=== PATIENT | female | born 1990 | race African-American/Black ===

== ENCOUNTER 2017-10-03 15:56 | Emergency (ER) | payer MEDICAID ==
--- NOTE | 2017-10-03 16:20 | EDPHY ---
H & P Stated Complaint: Abd Pain, nausea Time Seen by Provider: 10/03/17 16:07 HPI/ROS: CHIEF COMPLAINT: Abdominal pain nausea vomiting diarrhea HISTORY OF PRESENT ILLNESS: 27-year-old female with no history of chronic abdominal pain, no history of abdominal surgeries, complaining of diffuse nonspecific abdominal pain, nausea, vomiting, diarrhea since this morning. No urinary abnormality. No fever or chills. No flank pain. No dyspareunia. No dysuria. No abdominal trauma. REVIEW OF SYSTEMS: A ten point review of systems was performed and is negative with the exception of the items mentioned in the HPI PAST MEDICAL & SURGICAL HISTORY: No history of abdominal surgeries or chronic abdominal pathology. SOCIAL HISTORY: Denies alcohol or drug use. [facility] PHYSICAL EXAM (Prior to examination, patient consented to physical exam, hands were washed and my usual and customary physical exam procedures followed) 1) GENERAL: Well-developed, well-nourished, alert and oriented. Appears uncomfortable laying left lateral, position . 2) HEAD: Normocephalic, atraumatic 3) HEENT: Pupils equal, round, reactive to light bilaterally. Sclera anicteric. Nasopharynx, oropharynx, clear, no lesions. Dry mucous membranes Ears bilaterally with normal tympanic membranes. 4) NECK: Full range of motion, no meningeal signs. 5) LUNGS: Clear auscultation bilaterally, no wheezes, no rhonchi, no retractions. 6) HEART: Regular rate and rhythm, no murmur, no heave, no gallop. 7) ABDOMEN: Guarding abdomen, tender to palpation all quadrants 8) MUSCULOSKELETAL: Moving all extremities, no focal areas of tenderness, no obvious trauma. No peripheral edema or discoloration. 9) BACK: No CVA tenderness, no midline vertebral tenderness, no fluctuance, no step-off, no obvious trauma, no visual or palpable abnormality. 10) SKIN: No rash, no petechiae. 11) Psychiatric: Patient is oriented X 3, there is no agitation. DIFFERENTIAL DIAGNOSIS: My differential diagnosis includes, but is not limited to, acute appendicitis, acute cholecystitis, bowel obstruction, acute pancreatitis, ovarian torsion, ectopic , gastritis and urinary tract infection. The patient understands that this diagnosis is provisional and can never be 100% accurate. This is a partial list of diagnoses considered. These considerations are based on history, physical exam, past history and reassessment. - Personal History LMP (Females 10-55): Unknown Current Tetanus/Diphtheria Vaccine: Unsure Current Tetanus Diphtheria and Acellular Pertussis (TDAP): Unsure - Medical/Surgical History Hx Asthma: No Hx Chronic Respiratory Disease: No Hx Diabetes: No Hx Cardiac Disease: No Hx Renal Disease: No Hx Cirrhosis: No Hx Alcoholism: No Hx HIV/AIDS: No Hx Splenectomy or Spleen Trauma: No Other PMH: PMH: hyperthyriod, seizures - Social History Smoking Status: Current every day smoker Constitutional: Initial Vital Signs Temperature (C) 36.9 C 10/03/17 16:01 Heart Rate 87 10/03/17 16:01 Respiratory Rate 18 10/03/17 16:01 Blood Pressure 110/75 10/03/17 16:01 O2 Sat (%) 99 10/03/17 16:01 O2 Delivery Mode Room Air Allergies/Adverse Reactions: No Known Allergies Allergy (Unverified 10/03/17 16:03) Home Medications: Medication Instructions Recorded NK [No Known Home Meds] 10/03/17 Medical Decision Making - Diagnostics Imaging Results: Imaging Impressions PICC Line Insertion 10/03/17 17:05 Impression: 4-Faroese double-lumen peripherally inserted central catheter is ready to use. - - - - - - - - - - - - - - - - - - - - - - - - - - - - - - - - - - - - - - - - - (Cross-cutting measures: Current medications were listed in the medical record , including all known prescriptions, [id number] medications, herbal medications, and nutritional supplements.) IR call Pelvic/Renal Ultrasound 10/03/17 19:45 Impression: Normal ultrasound pelvis. Findings and recommendations discussed with Angelito Hayward at 10:00 PM hour , 10/03/2017. Final report concurs with initial preliminary interpretation. Abdomen CT 10/03/17 20:01 Impression: Normal abdominal CT. Findings and recommendations discussed with Angelito Hayward at 10:00 PM hour , 10/03/2017. Final report concurs with initial preliminary interpretation. Images reviewed by myself ED Course/Re-evaluation: 5:04 p.m.: Emergency department staff has attempted on numerous instances to obtain IV access unsuccessfully. Consultation with Dr. Anne at this time perform PICC line 8:02 p.m.: Patient has been observed in the ER, PICC line is in, complaining of continued abdominal pain 9:01 p.m.: Re-evaluation, patient is sleeping. Appears comfortable. 10:00 p.m.: Re-evaluation, talking on the phone appears comfortable 10:20 p.m.: Discussed with the patient her imaging results showing normal CT scan abdomen, normal pelvic ultrasound. Doubt acute surgical abdominal pathology, doubt acute appendicitis, doubt ovarian torsion, doubt ectopic , doubt acute cholecystitis, doubt acute pancreatitis. Specific etiology of her pain is not completely clear at this time. She is asymptomatic at this time. I do not think that further diagnostic studies or hospitalization is indicated. Recommended follow up with primary care and with Gastroenterology. She feels comfortable with this plan. All questions and concerns addressed by myself. Usual and customary abdominal precautions and instructions provided.Care of patient under supervision of secondary supervising physician Dr Monzon . - Data Points Laboratory Results: Laboratory Results 10/03/17 19:00 10/03/17 19:00 10/03/17 10/03/17 10/03/17 19:00 19:00 19:00 WBC 6.97 10^3/uL 10^3/uL (3.80-9.50) RBC 4.57 10^6/uL 10^6/uL (4.18-5.33) Hgb 13.5 g/dL g/dL (12.6-16.3) Hct 40.2 % % (38.0-47.0) MCV 88.0 fL fL (81.5-99.8) MCH 29.5 pg pg (27.9-34.1) MCHC 33.6 g/dL g/dL (32.4-36.7) RDW 12.8 % % (11.5-15.2) Plt Count 215 10^3/uL 10^3/uL (150-400) MPV 9.1 fL fL (8.7-11.7) Neut % (Auto) 81.8 % H % (39.3-74.2) Lymph % (Auto) 12.9 % L % (15.0-45.0) [place] % (Auto) 4.4 % L % (4.5-13.0) Eos % (Auto) 0.3 % L % (0.6-7.6) Baso % (Auto) 0.3 % % (0.3-1.7) Nucleat RBC Rel Count 0.0 % % (0.0-0.2) Absolute Neuts (auto) 5.70 10^3/uL 10^3/uL (1.70-6.50) Absolute Lymphs (auto) 0.90 10^3/uL L 10^3/uL (1.00-3.00) Absolute Monos (auto) 0.31 10^3/uL 10^3/uL (0.30-0.80) Absolute Eos (auto) 0.02 10^3/uL L 10^3/uL (0.03-0.40) Absolute Basos (auto) 0.02 10^3/uL 10^3/uL (0.02-0.10) Absolute Nucleated RBC 0.00 10^3/uL 10^3/uL (0-0.01) Immature Gran % 0.3 % % (0.0-1.1) Immature Gran # 0.02 10^3/uL 10^3/uL (0.00-0.10) Sodium 137 mEq/L mEq/L (134-144) Potassium 4.1 mEq/L mEq/L (3.5-5.2) Chloride 104 mEq/L mEq/L (97-110) Carbon Dioxide 19 mEq/l L mEq/l (22-31) Anion Gap 14 mEq/L mEq/L (8-16) BUN 13 mg/dL mg/dL (7-23) Creatinine 0.7 mg/dL mg/dL (0.6-1.0) Estimated GFR > 60 Glucose 82 mg/dL mg/dL (70-100) Calcium 9.6 mg/dL mg/dL (8.5-10.4) Total Bilirubin 1.8 mg/dL H mg/dL (0.1-1.4) Conjugated Bilirubin 0.0 mg/dL mg/dL (0.0-0.5) Unconjugated Bilirubin 1.8 mg/dL H mg/dL (0.0-1.1) AST 21 IU/L IU/L (14-46) ALT 31 IU/L IU/L (9-52) Alkaline Phosphatase 90 IU/L IU/L (38-126) Total Protein 6.7 g/dL g/dL (6.3-8.2) Albumin 4.2 g/dL g/dL (3.5-5.0) Lipase 73 IU/L IU/L (23-300) Beta HCG, Qual NEGATIVE Urine Color Urine Appearance Urine pH Ur Specific [place] Urine Protein Urine Ketones Urine Blood Urine Nitrate Urine Bilirubin Urine Urobilinogen Ur Leukocyte Esterase Urine RBC Urine WBC Ur Epithelial Cells Urine Mucus Urine Glucose 10/03/17 18:15 WBC RBC Hgb Hct MCV MCH MCHC RDW Plt Count MPV Neut % (Auto) Lymph % (Auto) [place] % (Auto) Eos % (Auto) Baso % (Auto) Nucleat RBC Rel Count Absolute Neuts (auto) Absolute Lymphs (auto) Absolute Monos (auto) Absolute Eos (auto) Absolute Basos (auto) Absolute Nucleated RBC Immature Gran % Immature Gran # Sodium Potassium Chloride Carbon Dioxide Anion Gap BUN Creatinine Estimated GFR Glucose Calcium Total Bilirubin Conjugated Bilirubin Unconjugated Bilirubin AST ALT Alkaline Phosphatase Total Protein Albumin Lipase Beta HCG, Qual Urine Color YELLOW Urine Appearance HAZY Urine pH 5.0 (5.0-7.5) Ur Specific [place] 1.027 (1.002-1.030) Urine Protein NEGATIVE (NEGATIVE) Urine Ketones TRACE H (NEGATIVE) Urine Blood NEGATIVE (NEGATIVE) Urine Nitrate NEGATIVE (NEGATIVE) Urine Bilirubin NEGATIVE (NEGATIVE) Urine Urobilinogen NEGATIVE EU EU (0.2-1.0) Ur Leukocyte Esterase NEGATIVE (NEGATIVE) Urine RBC 3-5 /hpf H /hpf (0-3) Urine WBC 1-3 /hpf /hpf (0-3) Ur Epithelial Cells TRACE /lpf /lpf (NONE-1+) Urine Mucus 1+ /lpf /lpf (NONE-1+) Urine Glucose NEGATIVE (NEGATIVE) Medications Given: Discontinued Medications Sodium Chloride (Ns) 1,000 mls @ 0 mls/hr IV ONCE ONE PRN Reason: Wide Open Stop: 10/03/17 16:23 Last Admin: 10/03/17 18:30 Dose: 1,000 mls Ketorolac Tromethamine (Toradol) 30 mg IVP EDNOW ONE Stop: 10/03/17 16:23 Last Admin: 10/03/17 19:15 Dose: Not Given Ketorolac Tromethamine (Toradol) 30 mg IM EDNOW ONE Stop: 10/03/17 17:23 Last Admin: 10/03/17 17:26 Dose: 30 mg Morphine Sulfate (Morphine) 4 mg IVP EDNOW ONE Stop: 10/03/17 19:46 Last Admin: 10/03/17 20:06 Dose: 4 mg Ondansetron HCl (Zofran) 4 mg IVP EDNOW ONE Stop: 10/03/17 16:23 Last Admin: 10/03/17 19:15 Dose: Not Given Departure - Departure Disposition: Home, Routine, Self-Care Clinical Impression: Abdominal pain Qualifiers: Abdominal location: generalized Qualified Code(s): R10.84 - Generalized abdominal pain Condition: Good Instructions: Acute Abdominal Pain (ED) Additional Instructions: Seek immediate medical attention if you develop new or worsening symptoms, if you develop fevers, chills, inability to tolerate oral intake or any other symptoms that concerns you. Referrals: Brad Zarate MD [[facility] [place] Primary Care Provider] - 2-3 days, call for appt. (Dr. Zarate is a economic development manager) [facility] [address] [Clinic] - 1 day without fail
[2017-10-03] MEDS ORDERED: NS 1,000 ML IV ONE (16:22)
[2017-10-03] MEDS ORDERED: ONDANSETRON 4 MG/2 ML VIAL IVP ONE (16:22)
[2017-10-03] MEDS ORDERED: KETOROLAC 30 MG/1 ML SDV IVP ONE (16:22)
[2017-10-03] MEDS ORDERED: ALTEPLASE 2 MG VIAL IVP PRN (17:05)
[2017-10-03] MEDS ORDERED: KETOROLAC 30 MG/1 ML SDV IM ONE (17:22)
[2017-10-03] MEDS ORDERED: ONDANSETRON DISINTEGRATING 4 MG TAB ONE (17:23)
[2017-10-03 18:44] LABS: COLOR YELLOW; LEUKOCYTE ESTERASE,URINE NEGATIVE (NEGATIVE); NITRITE,URINE NEGATIVE (NEGATIVE)
[2017-10-03 18:52] LABS: MUCUS 1+ /lpf (NONE-1+)
[2017-10-03 19:11] LABS: % IMMATURE GRANULYOCYTES 0.3 % (0.0-1.1); ABSOLUTE IMMATURE GRANULOCYTES 0.02 10^3/uL (0.00-0.10); ADD DIFF? NO; ADD MORPH? NO; ADD SCAN? NO; ATYPICAL LYMPHOCYTE FLAG 0 (0-99); FRAGMENT RBC FLAG 0 (0-99); HEMATOCRIT 40.2 % (38.0-47.0); HEMOGLOBIN 13.5 g/dL (12.6-16.3); LEFT SHIFT FLG 0 (0-99); LIPEMIA HEMOLYSIS FLAG 80 (0-99); MEAN CELL HEMOGLOBIN 29.5 pg (27.9-34.1); MEAN CELL HEMOGLOBIN CONCENTR. 33.6 g/dL (32.4-36.7); MEAN PLATELET VOLUME 9.1 fL (8.7-11.7); PLATELET CLUMPS FLAG 0 (0-99); PLATELET COUNT 215 10^3/uL (150-400); RED BLOOD CELL COUNT 4.57 10^6/uL (4.18-5.33); RED CELL DISTRIBUTION WIDTH 12.8 % (11.5-15.2)
[2017-10-03 19:28] LABS: ALANINE AMINOTRANSFERASE 31 IU/L (9-52); ALBUMIN 4.2 g/dL (3.5-5.0); ALKALINE PHOSPHATASE 90 IU/L (38-126); ANION GAP 14 mEq/L (8-16); ASPARTATE AMINOTRANSFERASE 21 IU/L (14-46); BILIRUBIN,TOTAL 1.8 mg/dL (0.1-1.4); BILIRUBIN-UNCONJUGATED 1.8 mg/dL (0.0-1.1); CALCIUM 9.6 mg/dL (8.5-10.4); CARBON DIOXIDE 19 mEq/l (22-31); CHLORIDE 104 mEq/L (97-110); CREATININE 0.7 mg/dL (0.6-1.0); GLOMERULAR FILTRATION RATE > 60; GLUCOSE 82 mg/dL (70-100); POTASSIUM 4.1 mEq/L (3.5-5.2); SODIUM 137 mEq/L (134-144); TOTAL PROTEIN 6.7 g/dL (6.3-8.2)
[2017-10-03 19:29] VITALS: RESP 16
[2017-10-03] MEDS ORDERED: IOPAMIDOL (ISOVUE-300) 100 ML BTL ONE (20:05)
[2017-10-03 22:43] VITALS: BP 107/76; TEMP 98.8
[2017-10-03 23:22] VITALS: PULSE 94; O2SAT 96
== END 2017-10-03 23:22 | disposition home or self-care (01) ==
DX: R10.84 Generalized abdominal pain (principal); F17.200 Nicotine dependence, unspecified, uncomplicated; R11.10 Vomiting, unspecified
CPT/HCPCS: 74177; 76856; 77001; 96372; 96374; 99285; C1751; J1885; J2405; Q9967

== ENCOUNTER 2017-10-08 09:48 | Inpatient (IN) | payer MEDICAID ==
[2017-10-08] MEDS ORDERED: NS 1,000 ML IV ONE ×2 (10:27→13:31)
[2017-10-08] MEDS ORDERED: KETOROLAC 15 MG/1 ML SDV IM ONE (10:27)
[2017-10-08] MEDS ORDERED: KETAMINE 500 MG/10 ML VIAL NASAL ONE (10:27)
[2017-10-08] MEDS ORDERED: METOCLOPRAMIDE 10 MG/2 ML VIAL IVP ONE (10:27)
[2017-10-08] MEDS ORDERED: METOCLOPRAMIDE 10 MG TAB PO ONE (10:29)
--- NOTE | 2017-10-08 10:29 | EDPHY ---
HPI/HX/ROS/PE/MDM Narrative: CHIEF COMPLAINT: Abdominal pain, N/V HISTORY OF PRESENT ILLNESS: The patient is a 27 y/o female returning to the ED for the second time this week complaining of nausea, vomiting, and abdominal pain for the last 4 days. She was evaluated here on 10/03 for the same symptoms and had a significant work up including a normal abdominal CT and pelvic US. She required a PICC line at that visit to get labs. She was discharged in good condition after morphine for her pain and says her pain resolved for 2 days before returning. Her abdominal pain feels "like a knot" and is improved after vomiting. She frequently requests pain medication during initial assessment. She smokes marijuana frequently and has been told in the past she may have cyclic vomiting when she had similar symptoms. She denies recent opioid use. She denies history of abdominal surgeries. No history of sickle cell disease. She is currently on her menstrual period. No fever, chills, rash, chest pain, shortness of breath, palpitations, diarrhea , urinary complaints, headache, lightheadedness. REVIEW OF SYSTEMS: Aside from elements discussed in the HPI, a comprehensive 10-point review of systems was reviewed and is negative. PAST MEDICAL HISTORY: Seizures, hypothyroidism SOCIAL HISTORY: Resides at [facility]. Smoker. Uses marijuana about every other day. Denies IV drug abuse. Prior medical records reviewed including ED visit 10/03/17 for the same symptoms. VITAL SIGNS: Reviewed by me GENERAL: Well-developed, well-nourished, moaning, in no respiratory distress. Laying curled up on the bed. Reluctant to lay supine for examination. HEENT: Atraumatic. Eyes: No icterus, no injection. Mouth: moist mucous membranes. No erythema or lesions. Neck: supple with no adenopathy. LUNGS: Clear to auscultation bilaterally, no wheezes, rhonchi or rales. CARDIAC: Regular rate and rhythm, no rubs, murmurs or gallops. ABDOMEN: Soft, mild epigastric and right-sided abdominal tenderness without guarding, nondistended, bowel sounds normal. BACK: No CVA tenderness. EXTREMITIES: No trauma. No edema. Range of motion is normal throughout. NEURO: Alert and oriented, grossly nonfocal. SKIN: Warm and dry, no rash. PSYCHIATRIC: Normal mentation, no agitation. Portions of this note were transcribed by a medical practice manager. I personally performed a history, physical exam, medical decision making, and confirmed accuracy of information the transcribed note. ED Course: This is a 27 y/o female who returns for the 2nd time in the last week for nausea , vomiting, and diffuse abdominal pain. This episode started 4 days ago and she has been told in the past she has been told she had cyclic vomiting syndrome related to marijuana use. She is moaning during assessment and has mild epigastric and right-sided abdominal tenderness on exam. Plan for 15mg IM Toradol, and 50mg IN Ketamine until we are able to get peripheral IV access. She has refused all PO medications. Labs and UA ordered. Staff has been unable to obtain peripheral IV. PICC line ordered. 12.5mg IM Phenergan, 25mg IM Benadryl, Haldol 2.5 mg IM, and 6mg IM morphine administered. Patient has returned from PICC line placement. On re-examination she states her discomfort and nausea and vomiting have not significantly improved. She does have emesis basins with bilious material in the room. Given her ongoing bilious vomiting, abdominal CT was ordered. 1410: RN alerted me she is having runs of VT and frequent PVCs on the monitor. Reassessed patient. She is lying on her side more comfortable than earlier, but still vomiting. This could be related to her PICC line. We've repositioned the patient on her back and are contacting the PICC team to reevaluate line placement. ISTAT, EKG, and chest x-ray ordered. Patient's PICC line was assessed by Dr. El, he feels that the PICC is in good location. No further runs of V-tach or further ectopy noted when the patient is laying on her back. I-STAT does not demonstrate electrolyte abnormalities or hypokalemia which may result in cardiac irritability. This to the hospital for further evaluation of her abdominal discomfort, vomiting, and bilious vomiting Case discussed with Dr. Andrea. MDM: Differential diagnosis of the patient's nausea and vomiting was considered including but not limited to gastroenteritis, gastritis, alcohol intoxication, withdrawal symptoms, intraabdominal processes including appendicitis, pancreatitis, bowel obstruction and medication side effect. - Data Points Imaging Results: Imaging Impressions PICC Line Insertion 10/08/17 11:12 Impression: Successful left upper extremity PICC placement. The catheter may be used immediately. Abdomen CT 10/08/17 13:55 Impression: 1. There is no evidence of a mechanical bowel obstruction. 2. Normal CT appearance of the appendix. Findings were discussed with Cinthya Juarez MD at 15:09, on 10/08/2017. Chest X-Ray 10/08/17 14:17 Impression: Left PICC appears to be in adequate position. Laboratory Results: Laboratory Results 10/08/17 13:15 10/08/17 13:15 10/08/17 10/08/17 10/08/17 15:09 13:15 13:15 WBC RBC Hgb POC Hgb 12.2 gm/dL L gm/dL (12.6-16.3) Hct POC Hct 36 % L % (38-47) MCV MCH MCHC RDW Plt Count MPV Neut % (Auto) Lymph % (Auto) [place] % (Auto) Eos % (Auto) Baso % (Auto) Nucleat RBC Rel Count Absolute Neuts (auto) Absolute Lymphs (auto) Absolute Monos (auto) Absolute Eos (auto) Absolute Basos (auto) Absolute Nucleated RBC Immature Gran % Immature Gran # POC Sodium 144 mEq/L mEq/L (134-144) Sodium 143 mEq/L mEq/L (134-144) POC Potassium 3.4 mEq/L mEq/L (3.3-5.0) Potassium 3.6 mEq/L mEq/L (3.5-5.2) POC Chloride 110 mEq/L mEq/L (97-110) Chloride 110 mEq/L mEq/L (97-110) Carbon Dioxide 19 mEq/l L mEq/l (22-31) Anion Gap 14 mEq/L mEq/L (8-16) POC BUN 6 mg/dL L mg/dL (7-23) BUN 8 mg/dL mg/dL (7-23) Creatinine 0.7 mg/dL mg/dL (0.6-1.0) POC Creatinine 0.5 mg/dL L mg/dL (0.6-1.0) Estimated GFR > 60 Glucose 116 mg/dL H mg/dL (70-100) POC Glucose 98 mg/dL mg/dL (70-100) Calcium 10.0 mg/dL mg/dL (8.5-10.4) Lipase 46 IU/L IU/L (23-300) Beta HCG, Qual NEGATIVE Urine Color Urine Appearance Urine pH Ur Specific [place] Urine Protein Urine Ketones Urine Blood Urine Nitrate Urine Bilirubin Urine Urobilinogen Ur Leukocyte Esterase Urine RBC Urine WBC Ur Epithelial Cells Urine Bacteria Urine Mucus Urine Glucose 10/08/17 10/08/17 13:15 10:45 WBC 5.99 10^3/uL 10^3/uL (3.80-9.50) RBC 4.31 10^6/uL 10^6/uL (4.18-5.33) Hgb 12.8 g/dL g/dL (12.6-16.3) POC Hgb Hct 38.2 % % (38.0-47.0) POC Hct MCV 88.6 fL fL (81.5-99.8) MCH 29.7 pg pg (27.9-34.1) MCHC 33.5 g/dL g/dL (32.4-36.7) RDW 12.4 % % (11.5-15.2) Plt Count 226 10^3/uL 10^3/uL (150-400) MPV 9.1 fL fL (8.7-11.7) Neut % (Auto) 72.3 % % (39.3-74.2) Lymph % (Auto) 23.4 % % (15.0-45.0) [place] % (Auto) 3.5 % L % (4.5-13.0) Eos % (Auto) 0.2 % L % (0.6-7.6) Baso % (Auto) 0.3 % % (0.3-1.7) Nucleat RBC Rel Count 0.0 % % (0.0-0.2) Absolute Neuts (auto) 4.33 10^3/uL 10^3/uL (1.70-6.50) Absolute Lymphs (auto) 1.40 10^3/uL 10^3/uL (1.00-3.00) Absolute Monos (auto) 0.21 10^3/uL L 10^3/uL (0.30-0.80) Absolute Eos (auto) 0.01 10^3/uL L 10^3/uL (0.03-0.40) Absolute Basos (auto) 0.02 10^3/uL 10^3/uL (0.02-0.10) Absolute Nucleated RBC 0.00 10^3/uL 10^3/uL (0-0.01) Immature Gran % 0.3 % % (0.0-1.1) Immature Gran # 0.02 10^3/uL 10^3/uL (0.00-0.10) POC Sodium Sodium POC Potassium Potassium POC Chloride Chloride Carbon Dioxide Anion Gap POC BUN BUN Creatinine POC Creatinine Estimated GFR Glucose POC Glucose Calcium Lipase Beta HCG, Qual Urine Color YELLOW Urine Appearance HAZY Urine pH 7.0 (5.0-7.5) Ur Specific [place] 1.024 (1.002-1.030) Urine Protein 1+ H (NEGATIVE) Urine Ketones NEGATIVE (NEGATIVE) Urine Blood 1+ H (NEGATIVE) Urine Nitrate NEGATIVE (NEGATIVE) Urine Bilirubin NEGATIVE (NEGATIVE) Urine Urobilinogen NEGATIVE EU EU (0.2-1.0) Ur Leukocyte Esterase NEGATIVE (NEGATIVE) Urine RBC 15-25 /hpf H /hpf (0-3) Urine WBC 1-3 /hpf /hpf (0-3) Ur Epithelial Cells 1+ /lpf /lpf (NONE-1+) Urine Bacteria TRACE /hpf H /hpf (NONE SEEN) Urine Mucus 4+ /lpf H /lpf (NONE-1+) Urine Glucose NEGATIVE (NEGATIVE) Medications Given: Discontinued Medications Diphenhydramine HCl (Benadryl Injection) 25 mg IM EDNOW ONE Stop: 10/08/17 11:21 Last Admin: 10/08/17 11:24 Dose: 25 mg Haloperidol Lactate (Haldol Injection) 2.5 mg IVP EDNOW ONE Stop: 10/08/17 13:32 Last Admin: 10/08/17 13:37 Dose: 2.5 mg Sodium Chloride (Ns) 1,000 mls @ 0 mls/hr IV EDNOW ONE; Wide Open PRN Reason: Protocol Stop: 10/08/17 10:28 Last Admin: 10/08/17 13:15 Dose: 1,000 mls Sodium Chloride (Ns) 1,000 mls @ 0 mls/hr IV ONCE ONE; Wide Open PRN Reason: Protocol Stop: 10/08/17 13:32 Last Admin: 10/08/17 13:40 Dose: 1,000 mls Ketamine HCl (Ketamine) 50 mg NASAL EDNOW ONE Stop: 10/08/17 10:28 Last Admin: 10/08/17 10:45 Dose: 50 mg Ketorolac Tromethamine (Toradol) 15 mg IM EDNOW ONE Stop: 10/08/17 10:28 Last Admin: 10/08/17 10:46 Dose: 15 mg Lorazepam (Ativan Injection) 1 mg IVP EDNOW ONE Stop: 10/08/17 13:57 Last Admin: 10/08/17 15:44 Dose: 1 mg Morphine Sulfate (Morphine) 6 mg IM EDNOW ONE Stop: 10/08/17 11:19 Last Admin: 10/08/17 11:25 Dose: 6 mg Ondansetron HCl (Zofran) 4 mg IVP EDNOW ONE Stop: 10/08/17 13:33 Last Admin: 10/08/17 13:37 Dose: 4 mg Promethazine HCl (Phenergan) 12.5 mg IM EDNOW ONE Stop: 10/08/17 11:20 Last Admin: 10/08/17 11:24 Dose: 12.5 mg Point of Care Test Results: 10/08/17 15:09 POC Sodium 144 POC Potassium 3.4 POC Chloride 110 POC BUN 6 L POC Creatinine 0.5 L POC Glucose 98 General Initial Vital Signs: Initial Vital Signs Temperature (C) 36.8 C 10/08/17 09:53 Heart Rate 80 10/08/17 09:53 Respiratory Rate 16 10/08/17 09:53 Blood Pressure 145/72 H 10/08/17 09:53 O2 Sat (%) 92 10/08/17 09:53 O2 Delivery Mode Nasal Cannula O2 (L/minute) 2 Allergies/Adverse Reactions: No Known Allergies Allergy (Unverified 10/03/17 16:03) Home Medications: Medication Instructions Recorded NK [No Known Home Meds] 10/03/17 Departure - Departure Disposition: [facility] Clinical Impression: Bilious vomiting Qualifiers: Nausea presence: with nausea Qualified Code(s): R11.14 - Bilious vomiting Abdominal pain Qualifiers: Abdominal location: generalized Qualified Code(s): R10.84 - Generalized abdominal pain Condition: Fair Report Scribed for: Cinthya Juarez Report Scribed by: Dixie Law Date of Report: 10/08/17 Time of Report: 10:29
[2017-10-08 10:59] LABS: COLOR YELLOW; LEUKOCYTE ESTERASE,URINE NEGATIVE (NEGATIVE); NITRITE,URINE NEGATIVE (NEGATIVE)
[2017-10-08 11:02] LABS: BACTERIA TRACE /hpf (NONE SEEN); MUCUS 4+ /lpf (NONE-1+); RBC,URINE 15-25 /hpf (0-3)
[2017-10-08] MEDS ORDERED: ALTEPLASE 2 MG VIAL IVP PRN (11:12)
[2017-10-08] MEDS ORDERED: PROMETHAZINE HCL 25 MG/ML INJ IM ONE (11:19)
[2017-10-08 13:28] LABS: % IMMATURE GRANULYOCYTES 0.3 % (0.0-1.1); ABSOLUTE IMMATURE GRANULOCYTES 0.02 10^3/uL (0.00-0.10); ADD DIFF? NO; ADD MORPH? NO; ADD SCAN? NO; ATYPICAL LYMPHOCYTE FLAG 30 (0-99); FRAGMENT RBC FLAG 0 (0-99); HEMATOCRIT 38.2 % (38.0-47.0); HEMOGLOBIN 12.8 g/dL (12.6-16.3); LEFT SHIFT FLG 0 (0-99); LIPEMIA HEMOLYSIS FLAG 80 (0-99); MEAN CELL HEMOGLOBIN 29.7 pg (27.9-34.1); MEAN CELL HEMOGLOBIN CONCENTR. 33.5 g/dL (32.4-36.7); MEAN CELL VOLUME 88.6 fL (81.5-99.8); MEAN PLATELET VOLUME 9.1 fL (8.7-11.7); PLATELET CLUMPS FLAG 0 (0-99); PLATELET COUNT 226 10^3/uL (150-400); RED BLOOD CELL COUNT 4.31 10^6/uL (4.18-5.33); RED CELL DISTRIBUTION WIDTH 12.4 % (11.5-15.2)
[2017-10-08] MEDS ORDERED: HALOPERIDOL LACT 5 MG/ML INJ IVP ONE (13:31)
[2017-10-08] MEDS ORDERED: ONDANSETRON 4 MG/2 ML VIAL IVP ONE (13:32)
[2017-10-08] MEDS ORDERED: HALOPERIDOL LACT 5 MG/ML INJ ONE (13:38)
[2017-10-08 13:47] LABS: ANION GAP 14 mEq/L (8-16); CARBON DIOXIDE 19 mEq/l (22-31); CHLORIDE 110 mEq/L (97-110); CREATININE 0.7 mg/dL (0.6-1.0); GLOMERULAR FILTRATION RATE > 60; GLUCOSE 116 mg/dL (70-100); POTASSIUM 3.6 mEq/L (3.5-5.2); SODIUM 143 mEq/L (134-144)
[2017-10-08] MEDS ORDERED: LORazepam 2 MG/ML INJ IVP ONE (13:56)
[2017-10-08] MEDS ORDERED: IOPAMIDOL (ISOVUE-300) 100 ML BTL ONE ×2 (14:02→14:04)
--- NOTE | 2017-10-08 14:29 | CPEKG ---
Heart Rate: 69 RR Interval: 870 P-R Interval: 172 QRSD Interval: 86 QT Interval: 432 QTC Interval: 463 P Commerce: 2 QRS Commerce: 68 T Wave Commerce: 42 EKG Severity - NORMAL ECG - EKG Impression: SINUS RHYTHM Electronically Signed By: Cinthya Juarez 08-Oct-2017 17:57:39
[2017-10-08 14:34] LABS: ALBUMIN 4.1 g/dL (3.5-5.0); BILIRUBIN,TOTAL 0.7 mg/dL (0.1-1.4); BILIRUBIN-CONJUGATED 0.3 mg/dL (0.0-0.5); BILIRUBIN-UNCONJUGATED 0.4 mg/dL (0.0-1.1); TOTAL PROTEIN 6.8 g/dL (6.3-8.2)
[2017-10-08] MEDS ORDERED: ONDANSETRON DISINTEGRATING 4 MG TAB PO PRN (15:42)
[2017-10-08] MEDS ORDERED: ACETAMINOPHEN 325 MG TAB PO PRN (15:42)
[2017-10-08] MEDS: LR 1,000 ML IV SCH (18:38)
--- NOTE | 2017-10-08 18:54 | GHP ---
[f rep st] HISTORY AND PHYSICAL DATE OF ADMISSION: 10/08/2017 CHIEF COMPLAINT: Intractable nausea, vomiting. HISTORY OF PRESENT ILLNESS: A 27-year-old female with history of seizures, who was seen in the emergency room on 10/03/2017, for 1 week of nausea, vomiting , abdominal pain. During that visit, she had a normal CT and pelvic ultrasound and discharged home. She returns, because symptoms worsened after a flu shot last . She smokes marijuana at least every other day, 2-3 times a day. Reports diarrhea, crampy abdominal pain, nonbloody emesis. Symptoms are relieved with hot showers and is actually requesting to take a shower during my interview. Previously on Tegretol for seizures. Has been off med since August; last seizure in July. REVIEW OF SYSTEMS: I completed a 10-point review of systems, negative except as noted in HPI. PAST MEDICAL HISTORY: Seizures. Used to take Tegretol. Last was in July 2017. Has been off her medications since being in half-way. She does not know the dose. PAST SURGICAL HISTORY: None. SOCIAL HISTORY: Came to [place] from [place], is currently living in a [facility], was jailed up through August. Smokes a pack a month of cigarettes. Smokes marijuana 2-3 times every other day. No alcohol or other illicits. FAMILY HISTORY: Noncontributory. MEDICATIONS: None. ALLERGIES: None. PHYSICAL EXAMINATION: VITAL SIGNS: Temperature 36.6, blood pressure 140/88, heart rate 80s, respirations 16, 95% on room air. GENERAL: She is very somnolent. Opens her eyes to voice. Short responses to my questions. HEENT: PERRLA. Dry mucous membranes. CV: Regular rate and rhythm. No murmurs, gallops, rubs. LUNGS: Clear to auscultation bilaterally. ABDOMEN: Soft, nondistended. Mild tenderness throughout. No rebound or guarding. Positive bowel sounds. : No suprapubic tenderness. MUSCULOSKELETAL: 5/5 upper and lower extremity strength. NEUROLOGIC: 2 through 12 intact. PSYCHIATRIC: Alert and oriented x3, but very slow to answer questions. Somnolent, but answering appropriately. LABORATORY DATA: WBC 5.99, hemoglobin 12, hematocrit 38, platelets 226. Sodium 144, potassium 3.4, chloride 110, BUN 6, creatinine 0.5, glucose 98. LFTs within normal. Negative . Urine 15-25 RBCs. DIAGNOSTIC STUDIES: EKG, personally reviewed by me, normal sinus rhythm. Chest x-ray: PICC line in place, no focal consolidation or effusion. Abdominal CT: No evidence of obstruction, normal appendix. ASSESSMENT AND PLAN: 1. Persistent nausea, vomiting, diarrhea: suspect cannabis hyperemesis syndrome given sxs and relief with hot showers. CT is unremarkable and negative pelvic ultrasound on the . Negative . We will check a PCR stool since having diarrhea. She is afebrile without leukocytosis. 2. THC dependence: counseled on cessation. Utox pending. 3. Hematuria: currently on her period. 4. Diet: Clears, advance as tolerated. 5. Acute abdominal pain: Again, no evidence of abnormality on CT. PRN Toradol and heating pad. 6. Deep venous thrombosis prophylaxis, low risk. Patient warrants observation admission given intractable nausea, vomiting warranting IV antiemetics and fluids. /[id number]/MODL MTDD
[2017-10-08] MEDS: PROMETHAZINE HCL 25 MG/ML INJ IVP PRN (20:33)
[2017-10-08] MEDS: ONDANSETRON 4 MG/2 ML VIAL IVP PRN (23:53)
[2017-10-09] MEDS ORDERED: KETOROLAC 15 MG/1 ML SDV IM SCH
[2017-10-09] MEDS: KETOROLAC 15 MG/1 ML SDV IVP SCH ×3 (00:07→16:45)
[2017-10-09 01:03] LABS: PHENCYCLIDINE URINE BCH < 6 ng/ml (NEGATIVE); PHENCYCLIDINE URINE BCH NEGATIVE (NEGATIVE)
[2017-10-09 01:33] LABS: TETRAHYDROCANNABINOL URINE > 800 ng/mL (NEGATIVE)
[2017-10-09] MEDS: PROMETHAZINE HCL 25 MG/ML INJ IVP PRN ×3 (01:40→16:51)
[2017-10-09] MEDS: LR 1,000 ML IV SCH (04:32)
[2017-10-09] MEDS: ONDANSETRON 4 MG/2 ML VIAL IVP PRN ×3 (04:32→13:53)
[2017-10-09] MEDS ORDERED: SUCRALFATE 1 GM/10 ML UDCUP PO PRN (04:44)
[2017-10-09] MEDS: LORazepam 2 MG/ML INJ IVP PRN ×3 (05:02→20:43)
[2017-10-09] MEDS: PANTOPRAZOLE SODIUM 40 MG VIAL IVP SCH ×2 (05:02→08:03)
[2017-10-09] MEDS ORDERED: KETOROLAC 15 MG/1 ML SDV IVP SCH ×2 (06:00→16:39)
[2017-10-09 06:08] LABS: ANION GAP 13 mEq/L (8-16); CALCIUM 9.7 mg/dL (8.5-10.4); CARBON DIOXIDE 24 mEq/l (22-31); CHLORIDE 108 mEq/L (97-110); CREATININE 0.7 mg/dL (0.6-1.0); GLOMERULAR FILTRATION RATE > 60; GLUCOSE 108 mg/dL (70-100); POTASSIUM 3.9 mEq/L (3.5-5.2); SODIUM 145 mEq/L (134-144)
[2017-10-09] MEDS ORDERED: SCOPOLAMINE HYDROBROMIDE 1 MG/3 DAYS PATCH TD ONE (16:16)
[2017-10-09] MEDS ORDERED: PROCHLORPERAZINE MALEATE 5 MG TAB PO PRN (16:16)
--- NOTE | 2017-10-09 16:43 | HOSPPROG ---
Hospitalist Progress Note Assessment/Plan: 27 yo F w abd pain abd pain: suspect cannabis hyperemesis vs functional abdominal pain continue antiemetics, toradol attempt to avoid narcotics not tachycardic or febrile hcg neg ?endometriosis: needs laparoscopy restart oral contraceptives ?IBS: add amitriptyline hs proph: lmwh dispo: change to inpt Subjective: c/o pain, nausea. ct images w no source for pain (interp by me) Objective: Vital Signs Temp Pulse Resp BP Pulse Ox 36.7 C 64 18 135/90 H 97 10/09/17 12:58 10/09/17 12:58 10/09/17 12:58 10/09/17 12:58 10/09/17 12:58 Laboratory Results 10/09/17 05:05 10/08/17 10/09/17 10/10/17 05:59 05:59 05:59 Intake Total 2022 Output Total 325 Balance 1698 - Physical Exam Constitutional: no apparent distress, appears nourished Eyes: PERRL, anicteric sclera Ears, Nose, Mouth, Throat: moist mucous membranes, hearing normal Cardiovascular: regular rate and rhythym, no murmur, rub, or gallop Respiratory: no respiratory distress, no rales or rhonchi Gastrointestinal: normoactive bowel sounds, soft, non-tender abdomen, No guarding, No rebound Genitourinary: no bladder fullness, No genao in urethra Skin: warm, normal color Musculoskeletal: full muscle strength Neurologic: AAOx3 ICD10 Worksheet Patient Problems: Problems Problem Status Onset Abdominal pain Acute Bilious vomiting Acute
[2017-10-09] MEDS: KETOROLAC 30 MG/1 ML SDV IVP SCH ×2 (16:51→21:56)
--- NOTE | 2017-10-09 17:30 | PDMN ---
Medical Necessity Medical necessity: Change to IP, as of 10/09/17, per MD; los >2 mn for ongoing management/tx of abdominal pain & nausea r/t possible cannabis hyperemesis, endometriosis, IBS; admit for further workup, IV meds/med management; per progress note & order 10/09/17
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
[2017-10-09] MEDS ORDERED: NORTRIPTYLINE HCL 10 MG CAP PO SCH (21:00)
[2017-10-10] MEDS: KETOROLAC 30 MG/1 ML SDV IVP SCH ×2 (05:24→17:04)
[2017-10-10] MEDS: ONDANSETRON 4 MG/2 ML VIAL IVP PRN (05:24)
[2017-10-10 05:38] LABS: % IMMATURE GRANULYOCYTES 0.2 % (0.0-1.1); ABSOLUTE IMMATURE GRANULOCYTES 0.01 10^3/uL (0.00-0.10); ADD DIFF? NO; ADD MORPH? NO; ADD SCAN? NO; ATYPICAL LYMPHOCYTE FLAG 30 (0-99); FRAGMENT RBC FLAG 0 (0-99); HEMATOCRIT 28.5 % (38.0-47.0); HEMOGLOBIN 9.3 g/dL (12.6-16.3); LEFT SHIFT FLG 0 (0-99); LIPEMIA HEMOLYSIS FLAG 80 (0-99); MEAN CELL HEMOGLOBIN 29.7 pg (27.9-34.1); MEAN CELL HEMOGLOBIN CONCENTR. 32.6 g/dL (32.4-36.7); MEAN CELL VOLUME 91.1 fL (81.5-99.8); MEAN PLATELET VOLUME 9.5 fL (8.7-11.7); PLATELET CLUMPS FLAG 0 (0-99); PLATELET COUNT 163 10^3/uL (150-400); RED BLOOD CELL COUNT 3.13 10^6/uL (4.18-5.33); RED CELL DISTRIBUTION WIDTH 12.5 % (11.5-15.2)
[2017-10-10 05:57] LABS: ANION GAP 9 mEq/L (8-16); CALCIUM 8.3 mg/dL (8.5-10.4); CARBON DIOXIDE 23 mEq/l (22-31); CHLORIDE 110 mEq/L (97-110); CREATININE 0.7 mg/dL (0.6-1.0); GLOMERULAR FILTRATION RATE > 60; GLUCOSE 77 mg/dL (70-100); POTASSIUM 3.6 mEq/L (3.5-5.2); SODIUM 142 mEq/L (134-144)
[2017-10-10 08:50] VITALS: RESP 18
[2017-10-10] MEDS ORDERED: ENOXAPARIN 40 MG/0.4 ML SYR SC SCH (09:00)
[2017-10-10] MEDS: PANTOPRAZOLE SODIUM 40 MG VIAL IVP SCH (09:59)
[2017-10-10] MEDS: PROMETHAZINE HCL 25 MG/ML INJ IVP PRN (09:59)
--- NOTE | 2017-10-10 15:07 | HOSPPROG ---
Hospitalist Progress Note Assessment/Plan: 27 yo F w abd pain abd pain: suspect cannabis hyperemesis vs functional abdominal pain continue antiemetics, toradol attempt to avoid narcotics not tachycardic or febrile hcg neg ?endometriosis: needs laparoscopy restart oral contraceptives ?IBS: add amitriptyline hs proph: lmwh dispo: home today > 30 minutes Subjective: eating/. feels well. no melena or brbpr Objective: Vital Signs Temp Pulse Resp BP Pulse Ox 36.6 C 59 L 18 125/88 H 96 10/10/17 08:49 10/10/17 08:49 10/10/17 08:49 10/10/17 08:49 10/10/17 08:49 Laboratory Results 10/10/17 05:22 10/10/17 05:22 10/09/17 10/10/17 10/11/17 05:59 05:59 05:59 Intake Total 4423 Output Total 1300 Balance 3123 - Physical Exam Constitutional: no apparent distress, appears nourished Eyes: PERRL, anicteric sclera Ears, Nose, Mouth, Throat: moist mucous membranes, hearing normal Cardiovascular: regular rate and rhythym, no murmur, rub, or gallop Respiratory: no respiratory distress, no rales or rhonchi Gastrointestinal: normoactive bowel sounds, soft, non-tender abdomen Genitourinary: no bladder fullness, No genao in urethra Skin: warm, normal color Musculoskeletal: full muscle strength Neurologic: AAOx3 ICD10 Worksheet Patient Problems: Problems Problem Status Onset Abdominal pain Acute Bilious vomiting Acute
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
[2017-10-10] MEDS ORDERED: PATCH REMOVAL 1 EA PATCH TD ONE (16:30)
[2017-10-10 16:59] VITALS: BP 119/72; PULSE 56; TEMP 98.2; O2SAT 100
--- NOTE | 2017-10-10 20:41 | GDS ---
[f rep st] DISCHARGE SUMMARY DISCHARGE DIAGNOSIS: 1. Suspected cannabis hyperemesis syndrome. 2. Possible irritable bowel syndrome. 3. Possible endometriosis. HOSPITAL COURSE: Please see admission History and Physical by Dr. Francisca Andrea. The patient prese nted with nausea and vomiting and abdominal pain. She had a CAT scan. Essentially unremarkable. Sh maggie had an EKG that was also unremarkable. She notes that she has been using more marijuana than usual because she had her hours cut down and she has just kind of been "hanging out." She was managed without narcotic pain medications. The patient was tolerating orals on the day of r. She did have a bit of a hematocrit drop that was felt secondary to hydration. There was no melena or bright red blood per rectum. In fact, the patient had not vomited or moved her bowels at all and she was neither tachycardic nor had increasing abdominal pain nor nauseated. DISPOSITION: She is discharged home with a prescription for nortriptyline. We did discuss moderatin g her marijuana use. /[id number]/MODL
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
== END 2017-10-10 17:05 | disposition home or self-care (01) | DRG 897 ==
LOC: EDUNIT# → F1N 16:24 → OBSVTOIN 10-09 17:17
PROVIDERS: ADMIT Internal Medicine; ATTEND Internal Medicine
PROC: 02HV33Z Insertion of Infusion Device into Superior Vena Cava, Percutaneous Approach (ICD-10-PCS; principal; 2017-10-09)
DX: F12.288 Cannabis dependence with other cannabis-induced disorder (principal); R11.2 Nausea with vomiting, unspecified; K58.9 Irritable bowel syndrome, unspecified; E03.9 Hypothyroidism, unspecified; R56.9 Unspecified convulsions; F17.210 Nicotine dependence, cigarettes, uncomplicated; N80.9 Endometriosis, unspecified
CPT/HCPCS: 80307; 82947-QW; 96374; C1751; G0378; G0480; J1200; J1650; J1885; J2060; J2405; J2550; Q9967